=== PATIENT | male | born 1990 | race African-American/Black ===

== ENCOUNTER 2022-04-19 21:48 | Emergency (ER) | payer OTHER, SELFPAY ==
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
[2022-04-19 21:51] VITALS: BP 143/82; PULSE 87; RESP 20; TEMP 36.4; O2SAT 99
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
[2022-04-20] MEDS: IBUPROFEN 400 MG TABLET 800 MG PO (00:11)
[2022-04-20 00:15] VITALS: BP 130/72; PULSE 72; RESP 18; O2SAT 98
== END 2022-04-20 00:18 | disposition home or self-care (01) ==
PROVIDERS: Emergency Provider Emergency Medicine
DX: S16.1XXA Strain of muscle, fascia and tendon at neck level, initial encounter (principal); V49.40XA Driver injured in collision with unspecified motor vehicles in traffic accident, initial encounter
CPT/HCPCS: 72050; 99283; A9270